=== PATIENT | female | born 1990 | race Two or more races ===

== ENCOUNTER 2018-03-15 12:22 | Emergency (ER) | payer MEDICAID ==
[~2018-03-15] VITALS: Ht 162.6 cm; Wt 63.5 kg
--- NOTE | 2018-03-15 12:45 | NUR ---
PT WAS EVALUATED BY DR ROWE. PT WAS D/C'd DO HOME. D/C INSTRUCTIONS GIVEN TO THE PT.
[2018-03-15 12:46] VITALS: BP 128/78
== END 2018-03-15 12:47 | disposition home or self-care (01) ==
LOC: ER 12:26
DX: H66.91 Otitis media, unspecified, right ear (principal); H60.91 Unspecified otitis externa, right ear
CPT/HCPCS: 99283; A4663